=== PATIENT | female | born 1960 | race Caucasian/White ===

== ENCOUNTER 2017-02-26 13:55 | Inpatient (IN) | payer OTHER ==
[~2017-02-26] VITALS: Ht 170.2 cm; Wt 96.2 kg
--- NOTE | ~2017-02-26 | EKG ---
[address] [place] [address] ELECTROCARDIOGRAM REPORT Name: MARU AGEE Room #: 437-P [facility]#: [id number] Admission: 02/26/17 Attend Phys: Caden Phillips Discharge: Date of : 58 Report #: [id number] THIS REPORT FOR: //name// [facility] ED Test Date: 2017-02-26 Test Time: 13:51:55 Pat Name: MARU AGEE Department: Room: [facility] Gender: F Mid Level Java Developer: kasia : 1960 Requested By: Aguila Marinelli Order Number: [id number] MD: Mariano Banks Measurements Intervals [place] Rate: 98 P: 55 PA: 128 QRS: 21 QRSD: 80 T: -1 QT: 336 QTc: 430 Interpretive Statements Sinus rhythm Probable left atrial enlargement No previous ECG available for comparison Electronically Signed On 02-26-2017 22:42:49 CDT by Mariano Banks [email or web address] <ELECTRONICALLY SIGNED> By: Mariano Banks MD 02/26/17 2242 1351 1351 Mariano Banks MD /DAMARIS
[2017-02-26 13:57] VITALS: BP 110/72
[2017-02-26 15:08] LABS: EOSINOPHILS 1.4 % (0.0-3.0); HEMATOCRIT 35.6 % (37.0-47.0); LYMPHOCYTES 30.6 % (24.0-44.0); MCH 28.6 pg (26.0-34.0); MCHC 33.6 g/dL (28.0-37.0); MCV 84.9 fL (80.0-100.0); MONOCYTES 6.3 % (1.0-8.0); PLATELET COUNT 437 thou/uL (150-400); POLYS 60.7 % (36.0-66.0); RDW 12.6 % (10.5-14.5); WBC 11.5 thou/uL (4.0-11.0)
[2017-02-26 15:13] LABS: MANUAL DIFF NO
[2017-02-26 15:17] LABS: ANION GAP 8 mmol/L (7-16); BUN 19 mg/dL (7-18); CALCIUM 8.8 mg/dL (8.5-10.1); CHLORIDE 104 mmol/L (98-107); CO2 26 mmol/L (21-32); CREATININE 0.7 mg/dL (0.6-1.0); GLUCOSE 94 mg/dL (74-106); POTASSIUM 3.9 mmol/L (3.5-5.1); SODIUM 138 mmol/L (136-145)
[2017-02-26 15:31] LABS: APTT 29.2 Seconds (24.5-32.8)
[2017-02-26 15:36] LABS: ALBUMIN 3.1 g/dL (3.4-5.0); ALKALINE PHOSPHATASE 171 U/L (46-116); CK-MB MASS 0.6 ng/mL (<0.5-3.6); MAGNESIUM 1.5 mg/dL (1.8-2.4); NT-PRO BRAIN NAT PEPTIDE 82 pg/mL (<300); SGOT 24 U/L (15-37); SGPT 58 U/L (30-65); TOTAL BILIRUBIN 0.2 mg/dL (<0.1-1.0); TOTAL PROTEIN 7.4 g/dL (6.4-8.2); TROPONIN-I < 0.04 ng/mL (<0.04-0.07)
[2017-02-26 15:43] LABS: URINE BILIRUBIN NEGATIVE (Negative); URINE BLOOD NEGATIVE (Negative); URINE COLOR YELLOW; URINE GLUCOSE-RANDOM* NEGATIVE (Negative); URINE KETONES NEGATIVE (Negative); URINE LEUKOCYTES-REFLEX NEGATIVE (Negative); URINE PROTEIN (DIPSTICK) NEGATIVE (Negative); URINE SPECIFIC GRAVITY <= 1.005 (1.003-1.035); URINE UROBILINOGEN 0.2 E.U./dl (0.2-1.0)
[2017-02-26 16:18] LABS: ESR (SEDRATE) 59 mm/hr (0-30)
[2017-02-26] MEDS ORDERED: ADDERALL 30 MG30 MG PO (16:53)
[2017-02-26] MEDS ORDERED: VENLAFAXIN75 MG/1 T2 PO (16:53)
[2017-02-26] MEDS ORDERED: CETIRIZINE HCL5 MG PO (16:55)
[2017-02-26] MEDS ORDERED: XANAX 0.5 MG0.5 MG PO (16:55)
[2017-02-26] MEDS ORDERED: FLEXERIL PO (16:56)
[2017-02-26] MEDS ORDERED: DICLOFENAC SODI75 MG PO (16:56)
[2017-02-26 16:57] VITALS: BP 116/76
[2017-02-26 18:07] VITALS: BP 120/80
[2017-02-26 20:15] VITALS: BP 122/74
[2017-02-26 20:45] VITALS: BP 122/74
[2017-02-27 04:18] VITALS: BP 92/54
[2017-02-27 08:00] VITALS: BP 104/68
[2017-02-27 14:14] LABS: LYME ANTIBODY SCREEN* 0.12 ISR (0.00-0.90)
[2017-02-27 16:00] VITALS: BP 131/86
[2017-02-27 16:09] LABS: HEPATITIS C VIRUS AB <0.1 (0.0-0.9)
[2017-02-27 20:06] VITALS: BP 124/77
[2017-02-28 05:01] VITALS: BP 118/68
[2017-02-28 06:38] LABS: EOSINOPHILS 1.5 % (0.0-3.0); HEMOGLOBIN 10.7 gm/dL (12.0-15.0); LYMPHOCYTES 42.4 % (24.0-44.0); MCH 28.9 pg (26.0-34.0); MCHC 33.6 g/dL (28.0-37.0); MCV 85.9 fL (80.0-100.0); MONOCYTES 5.8 % (1.0-8.0); PLATELET COUNT 412 thou/uL (150-400); POLYS 49.3 % (36.0-66.0); RBC 3.72 mil/uL (4.20-5.00); RDW 12.7 % (10.5-14.5); WBC 10.2 thou/uL (4.0-11.0)
[2017-02-28 06:39] LABS: MANUAL DIFF NO
[2017-02-28 08:00] VITALS: BP 129/82
[2017-02-28] MEDS ORDERED: HYDROCODON-ACE1 EAC7 PO (10:22)
[2017-02-28 10:58] VITALS: BP 129/82
[2017-02-28 13:21] VITALS: BP 129/82
[2017-02-28 20:10] LABS: CHLAMYDIA TRACHOMATIS-PCR Negative (Negative); NEISSERIA GONORRHEA-PCR Negative (Negative)
== END 2017-02-28 13:25 | disposition home or self-care (01) | DRG 554 ==
LOC: ER 13:55 → EROBS 16:31 → 4S 16:58 → 2N 17:39 → 4S 17:48
PROVIDERS: Emergency Medicine; Hospitalist
DX: M13.0 Polyarthritis, unspecified (principal); R60.1 Generalized edema; R10.2 Pelvic and perineal pain; B35.4 Tinea corporis; Z90.49 Acquired absence of other specified parts of digestive tract; Z79.1 Long term (current) use of non-steroidal anti-inflammatories (NSAID)
CPT/HCPCS: 10100